=== PATIENT | female | born 1970 | race Caucasian/White ===

== ENCOUNTER → 2019-12-28 08:26 | Outpatient (CLI) | payer OTHER, SELFPAY ==
--- NOTE | ~2019-12-28 | MMUS_ITS ---
EXAMINATION: MM diagnostic [facility] BI w corin, US breast BI complete HISTORY: Palpable left breast mass TECHNIQUE: Additional 3-D tomosynthesis images of the breasts were performed and synthetic 2-D images were generated. CAD analysis was submitted and interpreted. High resolution bilateral breast ultraso und was performed. COMPARISON: Comparison to multiple prior studies sequentially, with oldest reviewed study dated 02/07. FINDINGS: MAMMOGRAPHIC FINDINGS: The breasts are extremely dense, which lowers the sensitivity of mammography. There are no suspicious masses, calcifications or architectural distortion in either breast to suggest malignancy. ULTRASOUND: There are multiple simple and complicated cysts in both breasts. In the right breast at 8:00, 3 cm fr om the nipple, there is an oval hypoechoic mass measuring 9 mm maximum dimension without significant posterior features. There is a cluster of small cysts at 8:00, 3 cm from the nipple measuring 6 mm in aggregate. In the left breast at 9:00, 1.5 cm from the nipple there is an irregular shaped hypoechoi c mass with internal vascularity and mixed posterior attenuation with antiparallel configuration caitlin uring 8 x 6 x 6 mm. IMPRESSION: 1. Irregular shaped 8mm hypoechoic mass of the left breast at 9:00, 1.5 cm from the nipple with angul ar margins, mixed posterior attenuation and internal vascularity. 2. Ultrasound-guided left breast biopsy recommended. BI-RADS category 4, suspicious findings. Reviewed, dictated and finalized at location A. IMPRESSION: 1. Irregular shaped 8mm hypoechoic mass of the left breast at 9:00, 1.5 cm from the nipple with angular margins, mixed posterior attenuation and internal vasc ularity. 2. Ultrasound-guided left breast biopsy recommended. BI-RADS category 4, suspicious findings.
== END ==
PROVIDERS: PCP Family Medicine; Visit Provider Obstetrics & Gynecology
DX: N63.20 Unspecified lump in the left breast, unspecified quadrant (principal); R92.8 Other abnormal and inconclusive findings on diagnostic imaging of breast
CPT/HCPCS: 76641; 77062; 77066; G0279

== ENCOUNTER → 2021-07-05 11:20 | Outpatient (CLI) | payer OTHER, SELFPAY ==
--- NOTE | ~2021-07-05 | MM_ITS ---
EXAMINATION: MM screening [facility] BI w corin HISTORY: Screening mammogram TECHNIQUE: Craniocaudal and mediolateral oblique 3-D tomosynthesis images were obtained and synthetic 2-D images were generated. CAD analysis was submitted and interpreted. COMPARISON: 12/28/2019 bilateral diagnostic mammogram and bilateral complete breast ultrasound 09/02/2018 bilateral complete ultrasound 02/20/2018 bilateral diagnostic digital mammogram and complete bilateral breast ultrasound 02/18/2018, 10/12/2016 bilateral digital screening mammogram examinations BREAST PARENCHYMAL COMPOSITION: The breasts are extremely dense, which lowers the sensitivity of mamm ography. FINDINGS: There is an approximately 2.5 mm asymmetric opacity at the posterior margin of the inner ma rgin of the lower inner quadrant of the left breast on craniocaudal view (craniocaudal Tomosynthesis image 18/38). Diagnostic left mammogram is recommended, with ultrasound if required. Otherwise there is no evidence of suspicious mass, calcification, or architectural distortion to sugg est malignancy in either breast. There has been no other suspicious interval change. IMPRESSION: 1. 2.5 mm asymmetric opacity in the posterior lower inner left breast 2. Diagnostic left mammogram and left breast ultrasound examination are recommended BI-RADS Category 0: Incomplete: Needs additional imaging evaluation. Reviewed, dictated and finalized at location A. IMPRESSION: 1. 2.5 mm asymmetric opacity in the posterior lower inner left breast 2. Diagnostic left mammogram and left breast ultrasound examination are recomme nded BI-RADS Category 0: Incomplete: Needs additional imaging evaluation.
== END ==
PROVIDERS: PCP Family Medicine; Visit Provider Obstetrics & Gynecology
DX: Z12.31 Encounter for screening mammogram for malignant neoplasm of breast (principal); R92.8 Other abnormal and inconclusive findings on diagnostic imaging of breast
CPT/HCPCS: 77063; 77067

== ENCOUNTER → 2021-08-01 08:20 | Outpatient (CLI) | payer OTHER, SELFPAY ==
--- NOTE | ~2021-08-01 | MMUS_ITS ---
EXAMINATION: MM diagnostic brissa LT w corin, US breast LT complete HISTORY: 2.5 mm asymmetric opacity in posterior lower inner left breast on 07/05/2021 screening mammog shante TECHNIQUE: Additional full field ML and spot craniocaudal 3-D tomosynthesis images of the left breast were performed and synthetic 2-D images were generated. CAD analysis was submitted and interpreted. High resolution complete left breast ultrasound including all 4 quadrants and subareolar area was per formed. COMPARISON: 07/05/2021 bilateral digital screening mammogram 12/28/2019 bilateral complete breast ultrasound FINDINGS: MAMMOGRAPHIC FINDINGS: The previously reported 2.5 mm asymmetric opacity in the posterior lower inner left breast on 07/05/20 21 screening cranial caudal view is not evident on the current examination. ULTRASOUND: 2:00 1 cm from nipple: 4.3 x 4.6 x 4.2 mm, complicated cyst with through transmission and posterior e nhancement, no internal vascularity 2:00 1 cm from nipple: Parallel circumscribed hypoechoic 2.8 x 3.8 millimeter hypoechoic lesion witho ut internal vascularity or posterior shadowing 2:00 1 cm from nipple: 2.2 x 4.6 mm septated cyst 6:00 2 cm from nipple: 2.6 x 3.6 mm cyst Retroareolar 2.7 x 4.8 mm simple cyst IMPRESSION: 1. Benign findings; no mammographic evidence of malignancy 2. Routine annual mammographic screening is recommended BI-RADS Category 2: Benign finding(s). Reviewed, dictated and finalized at location A. IMPRESSION: 1. Benign findings; no mammographic evidence of malignancy 2. Routine annual mammographic screening is recommended BI-RADS Category 2: Benign finding(s).
== END ==
PROVIDERS: PCP Family Medicine; Visit Provider Obstetrics & Gynecology
DX: N63.21 Unspecified lump in the left breast, upper outer quadrant (principal); N60.02 Solitary cyst of left breast
CPT/HCPCS: 76641; 77061; 77065; G0279

== ENCOUNTER → 2023-08-28 15:55 | Outpatient (CLI) | payer OTHER, SELFPAY ==
--- NOTE | ~2023-08-28 | MM_ITS ---
EXAMINATION: MM screening [facility] BI w corin HISTORY: Screening mammogram TECHNIQUE: Craniocaudal and mediolateral oblique 3-D tomosynthesis images were obtained and synthetic 2-D images were generated. CAD analysis was submitted and interpreted. COMPARISON: 08/01/2021 diagnostic left mammogram and complete left breast ultrasound examination 07/05/2021 bilateral screening mammogram 12/28/2019 bilateral diagnostic mammography and bilateral complete breast ultrasound examination BREAST PARENCHYMAL COMPOSITION: The breasts are extremely dense, which lowers the sensitivity of mamm ography. FINDINGS: History of benign left breast biopsy in 2019. Occasional scattered benign bilateral punctat e microcalcifications. There is no evidence of suspicious mass, calcification, or architectural disto rtion to suggest malignancy in either breast. There has been no suspicious interval change. IMPRESSION: 1. No mammographic evidence of malignancy. 2. Recommend routine screening mammography in one year. BI-RADS Category 1: Negative Reviewed, dictated and finalized at location B. [employer]
== END ==
PROVIDERS: PCP Student in an Organized Health Care Education/Training Program; Visit Provider Student in an Organized Health Care Education/Training Program
DX: Z12.31 Encounter for screening mammogram for malignant neoplasm of breast (principal)
CPT/HCPCS: 77063; 77067